=== PATIENT | male | born 1945 | race Caucasian/White ===

== ENCOUNTER 2025-07-04 13:31 | Outpatient (AMB) | payer MEDICARE, MEDICAID, SELFPAY ==
--- OUTSIDE RECORDS SUMMARY | 2024-10-26 11:00 | XMS_ITS | Encounter Summary ---
Author Name [facility] [place] Address [address] [place] [address] Care Team Providers Care Cloth Painter Name Role Phone SUSAN DENNIS Primary Care Provider Unavailabl e Insurance Providers: All historical and current Section Date Range: From patient's date of to the date document was created. This section includes the names of all active insurance providers for the patient. Insurance Provider Type of Coverage Plan Name Start of Policy Coverage End of Policy Coverage Group Number Member ID Insurance Provider's Telephone Number Policy Hardwick's Name Patient's Relationship to Policy Hardwick [facility] ([facility]) MEDICARE ADVANTAGE MCR ([facility]) Nov 17, 2022 [facility] [id number] Audrey HURST EORGE PATIENT [facility] ([facility]) MEDICARE ADVANTAGE [facility] ([facility]) Feb 16, 2020 [id number] Audrey HURST EORGE PATIENT Selected Encounter This section includes the information on record at [place] for the Encounter. Date/Time Encounter Type Encounter Description Reason Provider Source Oct 26, 2024 03:00 PM OFFICE O/P EST MOD 30 MIN PODIATRY ICD-10-CM L60.3 Nail dystrophy CARIN NAZARIO Encounter Template Text not used by VA Assessments - Encounter Diagnoses This section includes the primary and secondary diagnoses documented for the Encounter. Date/Time Primary/Secondary Diagnosis Diagnosis Name Provider Source Oct 26, 2024 03:26 PM PRIMARY Nail dystrophy CARIN NAZARIO Oct 26, 2024 03:26 PM SECONDARY Corns and callosities CARIN NAZARIO [facility] Oct 26, 2024 03:26 PM SECONDARY Pain in left toe(s) CARIN NAZARIO [facility] Oct 26, 2024 03:26 PM SECONDARY Pain in right toe(s) CARIN NAZARIO [facility] Oct 26, 2024 03:26 PM SECONDARY Type 2 diabetes w diabetic peripheral angiopath w/o gangrene CARIN NAZARIO [facility] Plan of Treatment: Future Appointments (+ 6 months) and Future Tests (+/- 45 days) The Plan of Treatment section includes future care activities for the patient from [facility] This section includes future appointments and future orders which are active, pending or scheduled. Future Appointments This section includes appointments that were scheduled to occur 6 months from the date of the Encounter, up to a maximum of 20 appointments. The data comes from all [place] treatment facilities. Appointment Date/Time Appointment Type Appointme nt Facility Name Dec 09, 2024 09:00 [facility] March 18, 2025 03:00 PM AM[facility]ULATORY [facility] MEDICINE [facility] Social History: Smoking Status (Most current) and Tobacco Use (All prior to encounter date) This section includes the most current, and the historical, smoking and tobacco- related health factors from the [place] facility where the Encounter took place. Current Smoking Status This section includes the most current smoking, or tobacco-related health factor, from the [place] facility where the Encounter took place. Date/Time Current Smoking Status Comment Fiona ityo Sep 01, 2024 01:30 PM VA-TOBACCO NEVER USED [facility] Tobacco Use History This section includes a history of the smoking, or tobacco-related health factors, that were collected on or before the date of the Encounter. The data comes from the [place] facility where the Encounter took place. Date/Time Smoking Status/Tobacco Use Comment F acility Aug 12, 2023 01:00 PM VA-TOBACCO NEVER USED [facility] Aug 12, 2022 01:00 PM VA-TOBACCO FORMER USER [facility] Aug 12, 2022 01:00 PM VA-TOBACCO QUIT 15 YRS OR MORE [facility] Aug 14, 2021 09:30 AM VA-TOBACCO FORMER USER [facility] Aug 14, 2021 09:30 AM VA-TOBACCO QUIT 15 YRS OR MORE [facility] Aug 06, 2018 02:38 PM VA-TOBACCO FORMER USER [facility] 20, 2018 02:38 PM VA-TOBACCO QUIT 15 YRS OR MORE [facility] Aug 06, 2018 01:55 PM QUIT TOBACCO USE > 7 YEARS AGO [facility] Jul 29, 2017 11:26 AM QUIT TOBACCO USE > 7 YEARS AGO [facility] Jul 29, 2016 01:23 PM QUIT TOBACCO USE > 7 YEARS AGO qyut smoking cig in 2004 [facility] Jan 31, 2015 02:13 PM QUIT TOBACCO USE > 7 YEARS AGO [facility] Sep 17, 2013 03:01 PM QUIT TOBACCO USE 1 -7 YEARS AGO [facility] Jan 22, 2012 09:59 AM QUIT TOBACCO USE 1 -7 YEARS AGO [facility] Sep 19, 2011 01:16 PM QUIT TOBACCO USE 1 -7 YEARS AGO 2004 [facility] Advance Directives: All historical and current Section Date Range: From patient's date of to the date document was created. This section includes ALL of a patient's completed or amended [place] Advance and Rescinded Directives. The entries below indicate that a directive exists for the patient, but an actual copy is not included with this document. The data comes from all [place] facilities. Date Advance Directives Provider Source Jan 13, 2018 [facility] Encounter Notes: All associated encounter notes This section contains the clinical notes associated to the Encounter. Date/Time Encounter Note(s) Provider Source Nov 16, 2024 09:17 AM LETTERS: LOCAL TITLE: PATIENT LETTER (B) STANDARD TITLE: LETTERS DATE OF NOTE: NOV 16, 2024@09:17 ENTRY DATE: NOV 16, 2024@09:17:58 AUTHOR: ASTON RUCKER COSIGNER: URGENCY: STATUS: COMPLETED [facility] [address] [place] [id number] [phone] * [phone] * [facility] [address] [place] [id number] Date: NOV 16, 2024 Dear Center: This is a reminder letter that your [facility] [place] located at [address] [place] [address]. You may sweet pickle maker your shoes and or orthotics at your convenience any day, Friday through Friday between 8:30am and 3:30pm. You do not need an appointment. BUT WE DO REQUEST THAT YOU CALL BEFORE ARRIVING TO MAKE SURE THE PODIATRY HEALTH ENERGY EFFICIENCY FINANCE MANAGER IS AVAILABLE ON THAT DAY. Call [phone] for Aston if you have any questions. We hope to see you soon, Sincerely, Office Staff for:SUSAN DENNIS Care Provider Upcoming Appointments: 03/01/2025 15:00 CWM/SO/PODIATRY/ARAVIND 09/01/2025 13:00 CWM/SO/PACT 10 ASTON RUCKER [facility] Oct 26, 2024 03:27 PM PODIATRY NOTE: LOCAL TITLE: PODIATRY PAVE FOOT EXAM STANDARD TITLE: PODIATRY NOTE DATE OF NOTE: OCT 26, 2024@15:27 ENTRY DATE: OCT 26, 2024@15:27:54 AUTHOR: CARIN NAZARIO COSIGNER: URGENCY: STATUS: COMPLETED PAVE FOOT EXAM A foot risk level was completed. The following risk level was identified for this patient: +POD RISK SCORE+ *--LEVEL 3 - (HIGH RISK)* ANY of the following: Severe obstructive peripheral arterial disease Ulceration; OR history of ulceration, osteomyelitis, or amputation Charcot joint w/foot deformity Chronic kidney disease, stage 4 or higher (Decreased sensation, foot deformity, and minor foot infection may be present or absent) LEVEL 3 FOOT EDUCATION: 1. Advised patient that extra depth footwear with soft molded inserts and braces may be required. 2. Advised patient not to walk barefoot. Instructed the patient to pay close attention to the style and fit of shoes. 3. Explained the importance of daily foot checks. Explained that loss of sensation leads to callouses. Callouses break down, which result in ulcers that may lead to gangrene and amputation. 4. Stressed the importance of daily foot hygiene. Warm (not hot) bathing of the feet, complete drying and thorough inspection for changes in the condition of the skin constitute daily foot care. Demonstrated how to do a thorough foot check. 5. Emphasized the use of clean, non-restrictive socks/stockings and well fitting shoes. 6. Stressed the importance of immediate follow-up of any foot injuries or ulcers. Explained that he/she should be non-weight bearing whenever there are lesions on the foot, to prevent cellular damage. Level of Understanding: Good Patient/Family Response to Foot Care Teaching Patient walks barefoot: A few times per month Patient/caregiver able to clean feet at least once daily: Yes Patient/caregiver has difficulty examining feet: No /nabor/ CARIN NAZARIO DPM TOBACCO CLOTH RECLAIMER Signed: 10/26/2024 15:28 CARIN NAZARIO [facility] Oct 26, 2024 08:52 AM PODIATRY NOTE: LOCAL TITLE: PODIATRY NOTE STANDARD TITLE: PODIATRY NOTE DATE OF NOTE: OCT 26, 2024@08:52 ENTRY DATE: OCT 26, 2024@08:52:24 AUTHOR: CARIN NAZARIO EXP COSIGNER: URGENCY: STATUS: COMPLETED NOTE: HAS RECEIVED BOTH COVID VACCINE DOSES AT [facility] *LAST SEEN FOR TREATMENT: 06/22/2024 S: Pt. is a 79 yo alert [facility] who is seen for continued podiatric care of painful, thickened, severely incurvated, yellow-brown discolored nails. There has been pain for several days which is intermittent with periods of exacerbation & remission, is of an aching throbbing nature and is exacerbated with shoes & increased activity. Pain is at LEVEL 2-3/10 prior to treatment & 0/10 after. There is no history of trauma. There have been no recent changes in the patient's medical condition or medications upon questioning today. Pt. is at risk of injury with self-care due to the presence of TYPE II DM. *DENIES ANY RECENT CHANGES IN MEDS-SEE RECONCILIATION PERFORMED THIS DATE BELOW DENIES TOBACCO O: Exam reveals skin color to be pigmented, temp, is WNL, text has areas of dryness plantar aspect of feet and heels bilat. There is absence of hair noted. Nails are thickened, yellow-brown discolored and display crumbling, flakiness and sub-ungual debris with rubor in the medial & lateral nail grooves and pain on palpation. Affected nails are as follows: 1-2-3-4-5 bilateral. There are hyperkeratosis noted at this time MEDIAL HALLUX BILAT & PERIPHERY OF HEELS BILATERAL. There are no other gross LE changes in status noted this date. PMH: Active problems - Computerized Problem List is the source for the following: *NOTE: REVIEWED ABOVE NOTING NO CHANGES SINCE PREVIOUS VISIT SEE PROBLEM LIST TEMPLATE FOR COMPLETE LIST NEEDED. (TYPE II DM/OBESITY) *NOTE: A1c = 6.1 (LAST TAKEN: 08/06/2021) XIK=463CD RISK VALUE=2 HEIGHT: 70 in [177.8 cm] (07/29/2016 13:22) WEIGHT: 245.5 lb [111.6 kg] (07/29/2016 13:22) VASCULAR: EXAM REVEALS DP & PT pulses TO BE absent non-palpable bilateral. CFT < 3 sec x 10. There is +2 edema and there are no varices-superficial noted. MUSCULOSKELETAL: Exam reveals muscle strength and tone to be equal & symmetrical bilaterally & WNL for an individual of this age and present physical-medical condition. There is pain free ROM at all joints distal to and including the ankle. NEUROLOGICAL: Exam reveals S/D, vibratory, light touch & proprioception sensations to be equal & symmetrical bilaterally & diminished for an individual of this age and present physical-medical status. Protective sensation utilizing a Ingleside-Raheel lOg monofilament is 10/10 bilateral. Exams are reviewed and noted to be unchanged since previous visit & determined to be non-contributory to the cc . *NOTE: *YEARLY COMPLETE PAVE EXAM PERFORMED TODAY - SEE BELOW. A: Clinical Impression: Painful onychocryptic, clinically mycotic dystrophic nails as noted above & hyperkeratois in the presence of PVD-DM. Class findings have been met in a high risk individual and the systemic condition has resulted in circulatory impairment & areas of desensitization. P: Treatment consists of debridement reduction of all nails via manual and electric means with excision of offending nail borders and thinning of nail plates to the point of immanent bleeding & surgical paring debridement of all hyperkeratosis utilizing a sterile #10 scalpel. Applied ammonium lactate 12% lotiont to dry skin. All care rendered without complications & pt. progressing well after podiatric care this date & will be scheduled for periodic care in an attempt to prevent future complications due to the underlying medical conditions. Tx. By a non-professional could be extremely hazardous to the patient's well-being due to the underlying medical condition. RTC 03/01 @ 3PM). REVIEWED HOME FOOT CARE FEET ARE IN EXCELLENT CONDITION AND I PROVIDED HIM WITH WRITTEN RECOMMENDATIONS FOR FOOT CARE TO BE REVIEWED AT HOME CONTINUE TO MAINTAIN THEM (FOOT CARE TIPS) DISCUSSED NEW PROTOCOLS AND CALLED JOSH FOR RESCHEDULING TODAY I DISCUSSED THE FINDINGS & PLAN WITH PATIENT (UNCHANGED SINCE PREVIOUS VISIT) & PATIENT AGREES AND UNDERSTANDS PLAN & RECEIVED MIRROR DISCUSSED HIS SON IN THE HOSPITAL WITH A POSSIBLE BONE INFECTION AND ON IV ANTIBIOTICS. Medication Reconciliation: PERFORMED TODAY - SEE BELOW. Outpatient: Has the patient been taking medications as documented in the EMLR? YES: The patient has been taking medications as documented in the EMLR. Essential Medication List for Review used to complete this medication reconciliation. INCLUDED IN THIS LIST: Alphabetical list of active outpatient prescriptions dispensed from this [facility] (local) and dispensed from another [place] or DoD facility (remote) as well as inpatient orders (local, pending and active), local clinic medications, locally documented non-VA medications, and local prescriptions that have or been discontinued in the past 90 days. - All changes in medications, including all non-VA/Herbal/OTC medications were entered into CPRS. - If there were any medications the patient should no longer take, they were discontinued. - The patient/caregiver was instructed to update this list, discard old lists, and take this list to the next appointment, whether with a VA or non-VA provider. JLV Link Data on this list may not be complete. Please check JLV. Allergies/ADRs (Tool #5) FACILITY ALLERGY/ADR -------- No Remote Allergy/ADR Data available for this patient [facility] No Known Allergies Med [facility] (Tool #1) INCLUDED IN THIS LIST: Alphabetical list of active outpatient prescriptions dispensed from this [facility] (local) and dispensed from another VA or DoD facility (remote) as well as inpatient orders (local pending and active), local clinic medications, locally documented non-VA medications, and local prescriptions that have or been discontinued in the past 90 days. Non-VA Meds Last Documented On: Sep 01, 2024 NOTE The display of VA prescriptions dispensed from another VA or DoD facility (remote) is limited to active outpatient prescription entries matched to National Drug File at the originating site and may not include some items such as investigational drugs, compounds, etc. NOT INCLUDED IN THIS LIST: Medications self-entered by the patient into personal health records (i.e. [employer]) are NOT included in this list. Non-VA medications documented outside this [place], remote inpatient orders (regardless of status) and remote clinic medications are NOT included in this list. The patient and provider must always discuss medications the patient is taking, regardless of where the medication was dispensed or obtained. Non-VA ASPIRIN 81MG EC TAB TAKE ONE TABLET BY MOUTH DAILY Non-VA ATORVASTATIN CALCIUM 80MG TAB TAKE ONE TABLET BY MOUTH AT BEDTIME Non-VA medication not recommended by VA provider. Medication prescribed by Non-VA provider. Non-VA EZETIMIBE 10MG TAB TAKE ONE TABLET BY MOUTH ONCE DAILY Patient wants to buy from Non-VA pharmacy. Medication prescribed by Non-VA provider. Non-VA FINASTERIDE 5MG TAB TAKE ONE TABLET BY MOUTH ONCE DAILY Non-VA medication not recommended by VA provider. Medication prescribed by Non-VA provider. Indication: FOR ENLARGED PROSTATE Non-VA FISH OIL 500MG DHA/EPA CAP,ORAL TAKE BY MOUTH DAILY Non-VA LISINOPRIL 5MG TAB TAKE ONE TABLET BY MOUTH ONCE DAILY Non-VA METFORMIN HCL 500MG TAB TAKE ONE TABLET BY MOUTH TWICE DAILY Non-VA METOPROLOL TARTRATE TAB TAKE BY MOUTH TWICE DAILY Non-VA MULTIVITAMIN/MINERALS CAP/TAB TAKE ONE TABLET BY MOUTH DAILY OUTPT OMEPRAZOLE 20MG EC CAP (Status = ) TAKE ONE CAPSULE BY MOUTH TWICE DAILY Rx# [id number] Last Released: 06/18/24 Qty/Days Supply: Rx Expiration Date: 09/08/24 Refills Remainin Non-VA OTHER CAP/TAB TAKE TIMOLOL EYE DROPS ONE DROP each eye DAILY Non-VA POLYETHYLENE GLYCOL 3350 POWDER,ORAL TAKE BY MOUTH DAILY Non-VA TICAGRELOR 60MG TAB TAKE ONE TABLET BY MOUTH TWICE DAILY SUPPLIES OUTPT ACCU-CHEK GUIDE (GLUCOSE) TEST STRIP (Status = Active) USE 1 STRIP TO TEST BLOOD SUGARS EVERY OTHER DAY TO BE USED WITH ACCU-CHEK GUIDE ME METER Rx# [id number] Last Released: 02/17/24 Qty/Days Supply: 50 Rx Expiration Date: 12/04/24 Refills Remainin OUTPT LANCET,SOFTCLIX (Status = Active) USE 1 LANCET DIRECTED ONCE DAILY TO TEST BLOOD SUGAR Rx# [id number] Last Released: 02/17/24 Qty/Days Supply: 100 Rx Expiration Date: 12/04/24 Refills Remainin OUTPT TABLET CUTTER (PILL SPLITTER) (Status = Active) USE CUTTER DIRECTED ONCE DAILY TO SPLIT TABLETS Rx# [id number] Last Released: 09/01/24 Qty/Days Supply: Rx Expiration Date: 11/30/24 Refills Remainin PAVE Foot Check: A complete foot check was completed at this encounter. VISUAL INSPECTION: Includes inspection for skin breaks, deformity, erythema, trauma, pallor on elevation, dependent rubor, nail deformities, extensive callus and pitting edema. Visual exam results: Abnormal Observations: Thickened toenails PEDAL PULSES: Includes palpation of dorsalis and posterior tibial pulses and signs/symptoms of vascular compromise like pain, pallor, parasthesia or paralysis. Absent: Comment: PT PULSES ARE ABSENT NON-PALPABLE BILAT SENSORY CHECK: Includes 10 gram Monofilament (Ingleside-Raheel) test of sensation. Intact (Greater than or equal to 80% of sites checked) Abnormal (Less than 80% of sites checked): Intact Comment: VIBRATORY & MONOFILAMENT ARE WNL BILAT HIGH-RISK: HIGH RISK INFORMATION PROVIDED: 1. Advised patient that extra depth footwear with soft molded inserts and braces may be required. 2. Advised patient not to walk barefoot. 3. Explained the importance of daily foot checks. 4. Stressed the importance of daily foot hygiene, including bathing, complete drying and thorough inspection for changes. The patient verbalized understanding and was offered a detailed handout on diabetic foot care. Patient is established patient of Podiatry and/or Vascular: Last scheduled appointment: JUN 22, 2024@15:00 AIDEN/LOGAN/PODIATRY/ARAVIND Comment: 06/22/2024 /nabor/ CARIN NAZARIO DPM TOBACCO CLOTH RECLAIMER Signed: 10/26/2024 15:27 CARIN NAZARIO
--- OUTSIDE RECORDS SUMMARY | 2025-07-04 14:24 | XMS_ITS | Clinical Summary ---
Author Organization [facility] 299 [facility] Address [address] [place] [address] Phone Care Team Providers Care Radiator Tester Name Role Phone Amilcar Huertas MD Primary Care Provider Allergies No known active allergies Medications aspirin 81 mg EC tablet Take 1 tablet (81 mg total) by mouth 1 (one) time each day. Active atorvastatin (LIPITOR) 80 mg tablet Take 1 tablet (80 mg total) by mouth at bedtime. Active metFORMIN (GLUCOPHAGE) 500 mg tablet Take 1 tablet (500 mg total) by mouth. Active finasteride (PROSCAR) 5 mg tablet Take 1 tablet (5 mg total) by mouth 1 (one) time each day. Do not crush, chew, or split. Active lisinopriL (PRINIVIL,ZESTR IL) 5 mg tablet Take 1 tablet (5 mg total) by mouth 1 (one) time each day. Active metoprolol succinate (TOPROL-XL) 25 mg 24 hr tablet Take 1 tablet (25 mg total) by mouth 1 (one) time each day. Do not crush or chew. Active tirzepatide (Mounjaro) 2.5 mg/0.5 mL injection Inject 0.5 mL (2.5 mg total) under the skin. Active sodium chloride (DAR 128) 5 % ophthalmic solution 1 drop if needed. Active omeprazole (PRILOSEC) 20 mg tablet,delayed release (DR/EC) Take by mouth. Active acetaminophen (TYLENOL 8 HOUR) 650 mg 8 hr tablet Take 1 tablet (650 mg total) by mouth every 8 (eight) hours if needed for mild pain. Do not crush, chew, or split. Active ezetimibe (ZETIA) 10 mg tablet Take 1 tablet (10 mg total) by mouth 1 (one) time each day. Active timoloL (BETIMOL) 0.5 % ophthalmic solution 1 drop 2 (two) times a day. Active tamsulosin (FLOMAX) 0.4 mg 24 hr capsule Take 1 capsule (0.4 mg total) by mouth 1 (one) time each day with breakfast. Capsules should be taken 30 minutes following the same meal each day. Active glucose blood test strip 1 each by Other route if needed. Use as instructed Active prednisoLONE acetate (PRED FORTE) 1 % ophthalmic suspension 1 drop 4 (four) times a day. Active ticagrelor (BRILINTA) 90 mg tablet Take 1 tablet (90 mg total) by mouth 2 (two) times a day. Active glucose blood test strip 1 each by Other route if needed. Use as instructed Active lancets ([employer] Delica Plus Lancet) 33 gauge USE 1 TO CHECK GLUCOSE ONCE DAILY Active Active Problems Problem Noted Date Diagnosed Date Abnormal ankle brachial index (RACHELLE) Naidu's esophagus Assessment & Plan (03/23/2025 4:21 PM EDT): Due for surveillance EGD. Book EGD Continue omeprazole 20 mg daily Upper Endoscopy: Discussed with patient indications for procedure as well as risks of bleeding, infection, risk of perforation and reaction to anesthesia. Patient is aware of risk of missed lesions. Patient understands and would like to proceed. Alternatives to endoscopic evaluation discussed. Benefit of procedure for screening, diagnostic and therapeutic purposes discussed. The patient acknowledges risks, benefits and alternatives and all questions are answered. Patient is to follow up after the procedure for biopsy results Diabetic Patients: Hold Mounjaro 7 days prior Skip metformin day of procedure General: Patient aware needs a ride home Not to have liquids for at least two hours before procedure. Benign hematuria Bladder diverticulum Coronary artery calcification Glucose intolerance GERD (gastroesophageal reflux disease) Fatty liver Lower urinary tract symptoms (LUTS) HTN (hypertension) HLD (hyperlipidemia) History of corneal transplant Diabetes (CMS/HCC V24, CMS/HCC V28) Severe obesity (BMI 35.0-39. 9) with comorbidity (CMS/HCC V24, [facility] V28) Macrocytosis without anemia Encounters Date Type Department Care Team Description 05/27/2025 11:40 AM EDT Anesthesia Event [facility] Endoscopy [address] [place] [address] Mir Larsen MD Claudio, Raymund, CRNA 05/27/2025 11:11 AM EDT - 05/27/2025 11:59 PM EDT Hospital Encounter [facility] Endoscopy [address] [place] [address] Sabino Pickering MD Claudio, Raymund, CRNA Dasilva, John E, MD Naidu's esophagus Discharge Disposition: Home or Self Care 04/29/2025 Telephone Gastroenterology - [place] [facility] [address] [facility] [address] [place] [address] Jacqueline Lopez LPN Anticoagulation (Upper endoscopy on 05/27/[address] Pickering) from Last 3 Months Surgical History Surgery Date Site/Laterality Comments ESOPHAGOGASTRODUODENOSCOPY 04/23/2021 Naidu's esophagus negative for dysplasia recall 3 years COLONOSCOPY 04/23/2021 follow-up as needed STENT PLACEMENT 01/16/2024 - 02/15/2024 CIRCUMCISION, PRIMARY COLONOSCOPY 11/17/2006 - 11/16/2007 ESOPHAGOGASTRODUODENOSCOPY 05/11/2018 HERNIA REPAIR Medical History Medical History Date Comments Naidu's esophagus Severe obesity (BMI 35.0-39. 9) with comorbidity ([facility] V24, [facility] V28) HTN (hypertension) Diabetes ([facility] V24, [facility] V28) HLD (hyperlipidemia) Lower urinary tract symptoms (LUTS) Glucose intolerance Bladder diverticulum Fatty liver Coronary artery calcification History of corneal transplant GERD (gastroesophageal reflux disease) Benign hematuria Abnormal ankle brachial index (RACHELLE) Macrocytosis without anemia Family History Medical History Relation Name Comments Hypertension Brother Pulmonary embolism Brother diabetes mellitus Other son Colon cancer Neg Hx Colon polyps Neg Hx Relation Name Status Comments Brother Other Social History Tobacco Use Types Packs/Day Years Used Date Smoking Tobacco: Former Cigarettes Smokeless Tobacco: Former Tobacco Cessation:Counseling Given: Not Answered Alcohol Use Standard Drinks/Week Comments Not Currently 0 (1 standard drink = 0.6 oz pur e alcohol) Interpersonal Safety Answer Date Record ed Physical Abuse 05/27/2025 Verbal Abuse 05/27/2025 Sex and Gender Information Value Date Recorded Sex Assigned at Not on file Legal Sex Male 5:23 AM EST Gender Identity Not on file Sexual Orientation Not on file Obstetrics History Last Filed Vital Signs Vital Sign Reading Time Taken Comments Blood Pressure 123/68 05/27/2025 12:19 PM EDT Pulse 86 05/27/2025 12:19 PM EDT Temperature 36.1 C (97 F) 05/27/2025 11:59 AM EDT Respiratory Rate 18 05/27/2025 12:19 PM EDT Oxygen Saturation 100% 05/27/2025 12:19 PM EDT Inhaled Oxygen Concentration - - Weight 113 kg (250 lb) 05/27/2025 11:33 AM EDT Height 177.8 cm (5' 10 ) 05/27/2025 11:33 AM EDT Body Mass Index 35.87 05/27/2025 11:33 AM EDT Plan of Treatment Health Maintenance Due Date Last Done Comments Diabetes: Annual GFR (Glomerular Filtration Rate) 1945 Diabetes: Annual Foot Exam 1955 Diabetes: Annual Retina Eye Exam 1955 Depression Screening 11/17/2024 COVID-19 Vaccine ( season) 2025 08/02/2024, 09/23/2022, 03/22/2022, Additional history exists Cholesterol Screening (Lipid Panel) 03/12/2025 Hepatitis C Screening 03/12/2025 Medicare Annual Wellness Visit 03/12/2025 Social Influencers of Health Screening 03/12/2025 Diabetes: Annual Urine Albumin-Creatinine Ratio (uACR) 03/21/2025 Diabetes: Blood Sugar Control Test (HGBA1C) 03/21/2025 Hypertension/CHF/CAD Annual BMP Blood Test 03/21/2025 Influenza Vaccine (#1) 2025 , 09/25/2023, 08/30/2022, Additional history exists Falls Risk Assessment 05/27/2026 05/27/2025 DTaP,Tdap,and Td Vaccines (5 - Td or Tdap) 04/14/2035 04/14/2025, 09/11/2018, 09/19/2011, Additional history exists Zoster Vaccines Completed 11/25/2022, 1105/2022, 01/31/2015 RSV Immunization Adult Patients Completed 12/18/2023 Pneumococcal Vaccine: 50+ Years Completed 01/08/2024, 07/29/2017, 06/16/2015, Additional history exists Hepatitis A Vaccines Aged Out 06/17/2024, 01/16/2024, 12/18/2023 No longer eligible based on patient's age to complete this topic Hepatitis B Vaccines Completed 06/17/2024, 01/16/2024, 12/18/2023 HIB Vaccines Aged Out No longer eligi ble based on patient's age to complete this topic HPV Vaccines Aged Out No longer eligi ble based on patient's age to complete this topic IPV Vaccines Aged Out No longer eligi ble based on patient's age to complete this topic MMR Vaccines Aged Out No longer eligi ble based on patient's age to complete this topic Meningococcal ACWY Vaccine Aged Out N o longer eligible based on patient's age to complete this topic Meningococcal B Vaccine Aged Out No l onger eligible based on patient's age to complete this topic RSV Immunization Patients Under 20 months Aged Out No longer eligible based on patient's age to complete this topic Varicella Vaccines Aged Out No longer eligible based on patient's age to complete this topic Procedures Procedure Name Priority Date/Time Associated Diagnosis Comments EGD Routine 05/27/2025 11:58 AM EDT Naidu's esophagus TISSUE EXAM Routine 05/27/2025 11:53 AM EDT Naidu's esophagus from Last 3 Months Results * EGD Anesthesia - MAC; [facility] ENDOSCOPY (05/27/2025 11:58 AM EDT) Anatomical Region Laterality Modality Endoscopy 05/27/2025 11:4 5 AM EDT Impressions 05/27/2025 12:01 PM EDT - Esophageal mucosal changes secondary to established long-segment Naidu's disease. Biopsied. - Normal stomach. - Normal examined duodenum. Recommendation: - Await pathology results. - Repeat upper endoscopy in 2 years for surveillance. Narrative 05/27/2025 12:[address] [facility] GI Patient Name: Dutch Hurst Procedure Date: 05/27/2025 11:45 AM Date of : 1945 Age: 79 Room: ROOM 15 Gender: Male Note Status: Finalized Attending MD: Sabino Pickering MD, Procedure Date No Time: 05/27/2025 Procedure: Upper GI endoscopy Indications: Surveillance for malignancy due to personal history of Naidu's esophagus Providers: Sabino Pickering MD Referring MD: Sabino Pickering MD Medicines: Propofol per Anesthesia Complications: No immediate complications. Estimated Blood Loss: Estimated blood loss: none. Estimated blood loss was minimal. Procedure: Pre-Anesthesia Assessment: - ASA Grade Assessment: II - A patient with mild systemic disease. After obtaining informed consent, the endoscope was passed under direct vision. Throughout the procedure, the patient's blood pressure, pulse, and oxygen saturations were monitored continuously.The Olympus Gastroscope was introduced through the mouth, and advanced to the second part of duodenum. The upper GI endoscopy was accomplished without difficulty. The patient tolerated the procedure well. Findings: There were esophageal mucosal changes secondary to established long-segment Naidu's disease present in the middle third of the esophagus and in the lower third of the esophagus. The maximum longitudinal extent of these mucosal changes was 5 cm in length. Mucosa was biopsied with a cold forceps for histology in 4 quadrants at intervals of 3 cm. The following biopsy specimens were sent to pathology: 4 quadrant biopsy at 33 cm from the incisors (1st Bottle) and 4 quadrant biopsy at 30 cm from the incisors (2nd Bottle). A total of 2 specimen bottles were sent to pathology. The stomach was normal. The examined duodenum was normal. Procedure Code(s): --- Professional --- 74644, Esophagogastroduodenoscopy, flexible, transoral; with biopsy, single or multiple Diagnosis Code(s): --- Professional --- K22.70, Naidu's esophagus without dysplasia CPT copyright 2020 [employer]. All rights reserved. The codes documented in this report are preliminary and upon car mechanic review may be revised to meet current compliance requirements. Sabino Pickering MD 05/27/2025 12:00:51 PM This report has been signed electronically.Sabino Pickering MD Number of Addenda: 0 Note Initiated On: 05/27/2025 11:45 AM Scope In: Scope Out: Endoscopy Department at [facility] - [address] [place] [phone] Procedure Note Sabino Pickering MD - 05/27/2025 [facility] GI Patient Name: Dutch Hurst Procedure Date: 05/27/2025 11:45 AM Date of : 1945 Age: 79 Room: ROOM 15 Gender: Male Note Status: Finalized Attending MD: Sabino Pickering MD, Procedure Date No Time: 05/27/2025 Procedure: Upper GI endoscopy Indications: Surveillance for malignancy due to personal historyof Niadu's esophagus Providers: Sabino Pickering MD Referring MD: Sabino Pickering MD Medicines: Propofol per Anesthesia Complications: No immediate complications. Estimated Blood Loss: Estimated blood loss: none. Estimated blood loss was minimal. Procedure: Pre-Anesthesia Assessment: - ASA Grade Assessment: II - A patient with mild systemic disease. After obtaining informed consent, the endoscope was passed under direct vision. Throughout theprocedure, the patient's blood pressure, pulse, and oxygen saturations were monitored continuously.The Olympus Gastroscope was introduced through the mouth, and advanced to the second part of duodenum. The upperGI endoscopy was accomplished without difficulty. The patient tolerated the procedure well. Findings: There were esophageal mucosal changes secondary to established long-segment Naidu's disease presentin the middle third of the esophagus and in the lower third of the esophagus. The maximum longitudinal extent of these mucosal changes was 5 cm in length. Mucosa was biopsied with a cold forceps forhistology in 4 quadrants at intervals of 3 cm. The following biopsy specimens were sent to pathology: 4 quadrant biopsy at 33 cm from the incisors (1st Bottle) and4 quadrant biopsy at 30 cm from the incisors (2nd Bottle). A total of 2 specimen bottles were sent to pathology. The stomach was normal. The examined duodenum was normal. Procedure Code(s): --- Professional --- 72290, Esophagogastroduodenoscopy, flexible, transoral; with biopsy, single or multiple Diagnosis Code(s): --- Professional --- K22.70, Naidu's esophagus without dysplasia CPT copyright 2020 [employer]. All rights reserved. The codes documented in this report are preliminary and upon car mechanic reviewmay be revised to meet current compliance requirements. Sabino Pickering MD 05/27/2025 12:00:51 PM This report has been signed electronically.Sabino Pickering MD Number of Addenda: 0 Note Initiated On: 05/27/2025 11:45 AM Scope In: Scope Out: Endoscopy Department at [address] [phone] IMPRESSION: - Esophageal mucosal changes secondary to established long-segment Naidu's disease. Biopsied. - Normal stomach. - Normal examined duodenum. Recommendation: - Await pathology results. - Repeat upper endoscopy in 2 years forsurveillance. Sabino Pickering MD GI~PROCEDURE ORDERABLES Fin al Result * Tissue exam (05/27/2025 11:53 AM EDT) Final Diagnosis A. Esophagus, biopsies at 33 cm: Gastric mucosa with intestinal metaplasia, compatible with Naidu's esophagus. Negative for dysplasia. Esophageal squamous mucosa is not appreciated. B. Esophagus, biopsies at 30 cm: Gastric mucosa with intestinal metaplasia, compatible with Naidu's esophagus. Negative for dysplasia. Esophageal squamous mucosa is not appreciated. 05/30/2025 10:40 AM EDT [facility] Gross Description A. Esophagus, biopsies at 33cm on scope: Labeled ID: 2, esophagus, esophagus . Received in formalin are four irregular pink-white mucosal tissue fragments, each measuring approximately 0.2 cm in greatest dimension, which are wrapped in paper and submitted in toto in one cassette, four pieces, multiple levels on one slide. B. Esophagus, biopsies at 30 cm on scope: Labeled ID: 2, esophagus, esophagus . Received in formalin are five irregular pink-white mucosal tissue fragments, ranging from less than 0.1 cm to 0.2 cm in greatest dimension, which are wrapped in paper and submitted in toto in one cassette, five pieces, multiple levels on one slide. EAGLE 05/30/2025 10:40 AM EDT [facility] Disclaimer Unless otherwise specified, all tissue is 10% NB formalin fixed and paraffin embedded. 05/30/2025 10:40 AM EDT [facility] Tissue Esophageal structure / Unknown 05/27/2025 11:53 AM EDT 05/27/2025 12:54 PM EDT Tissue specimen (specimen) Esophageal structure / Unknown 05/27/2025 11:54 AM EDT 05/27/2025 12:54 PM EDT us Sabino Pickering MD LAB PATHOLOGY ORDERABLES Fi nal Result [facility] ([facility]) [facility] [address] [place] [address], [place] [phone] from Last 3 Months Insurance [employer] [place] - [place] Care Teams Radiator Tester Relationship Specialty Start Date End Date Amilcar Huertas MD [address] [place] [address] PCP - General Internal Medicine 03/11/25
== END 2025-07-04 13:36 | disposition home or self-care (01) ==
LOC: HO.HMGAL 13:32
PROVIDERS: Visit Provider Registered Nurse Emergency
DX: J30.89 Other allergic rhinitis (principal)
CPT/HCPCS: 95117; 95165

== ENCOUNTER 2025-08-10 14:20 | Outpatient (AMB) | payer MEDICARE, MEDICAID, SELFPAY ==
--- OUTSIDE RECORDS SUMMARY | 2025-08-10 17:04 | XMS_ITS | Clinical Summary ---
Author Organization [facility] 299 [facility] Address [address] [place] [address] Phone Care Team Providers Care Credit Risk Manager Name Role Phone Amilcar Huertas MD Primary Care Provider [phone] Allergies No known active allergies Medications aspirin [...] if needed. Use as instructed Active lancets ([employer] Delica Plus Lancet) 33 gauge USE 1 [...] (BMI 35.0-39. 9) with comorbidity (CMS/HCC V24, [facility] V28) Macrocytosis without anemia Encounters Date Type Department Care Team Description 05/27/2025 11:40 AM EDT Anesthesia Event [facility] Endoscopy [address] [place] [phone] Mir Larsen MD Claudio, Raymund, CRNA 05/27/2025 11:11 AM EDT - 05/27/2025 11:59 PM EDT Hospital Encounter [facility] Endoscopy [address] [place] [phone] Sabino Pickering MD Claudio, Raymund, CRNA Dasilva, John E, MD Naidu's esophagus Discharge Disposition: Home or Self Care from Last 3 Months Surgical History Surgery Date Site/Laterality Comments ESOPHAGOGASTRODUODENOSCOPY 04/23/2021 Naidu's esophagus negative for dysplasia recall 3 years COLONOSCOPY 04/23/2021 follow-up as needed STENT PLACEMENT 01/16/2024 - 02/15/2024 CIRCUMCISION, PRIMARY COLONOSCOPY 11/17/2006 - 11/16/2007 ESOPHAGOGASTRODUODENOSCOPY 05/11/2018 HERNIA REPAIR Medical History Medical History Date Comments Naidu's esophagus Severe obesity (BMI 35.0-39. 9) with comorbidity ([facility] [place], [facility] V28) HTN (hypertension) Diabetes ([facility] V24, [facility] V28) HLD (hyperlipidemia) Lower urinary tract symptoms [...] Retina Eye Exam 1955 Depression Screening 11/17/2024 Cholesterol Screening (Lipid Panel) 03/12/2025 Hepatitis C Screening 03/12/2025 Medicare Annual Wellness Visit 03/12/2025 Social Influencers of Health Screening 03/12/2025 Diabetes: Annual Urine Albumin-Creatinine Ratio (uACR) 03/21/2025 Diabetes: Blood Sugar Control Test (HGBA1C) 03/21/2025 Hypertension/CHF/CAD Annual BMP Blood Test 03/21/2025 COVID-19 Vaccine ( season) 2025 08/02/2024, 09/23/2022, 03/22/2022, Additional history exists Influenza Vaccine (#1) 2025 , 09/25/2023, 08/30/2022, [...] 3 Months Results * EGD Anesthesia - [facility]; [facility] ENDOSCOPY (05/27/2025 11:58 AM EDT) Anatomical Region Laterality Modality Endoscopy 05/27/2025 11:4 5 AM EDT Impressions 05/27/2025 12:01 PM EDT - Esophageal mucosal changes secondary to established long-segment Naidu's disease. Biopsied. - Normal stomach. - Normal examined duodenum. Recommendation: - Await pathology results. - Repeat upper endoscopy in 2 years for surveillance. Narrative 05/27/2025 12:01 PM EDT [facility] GI Patient Name: Dutch Hurst Procedure Date: [...] was normal. Procedure Code(s): --- Professional --- 20628, Esophagogastroduodenoscopy, flexible, transoral; with biopsy, single or multiple Diagnosis Code(s): --- Professional --- K22.70, Naidu's esophagus without dysplasia CPT copyright 2020 [employer]. All rights reserved. The codes documented in this report are preliminary and upon trust clerk review may be revised to meet current compliance requirements. Sabino Pickering MD 05/27/2025 12:00:51 PM This report has been signed electronically.Sabino Pickering MD Number of Addenda: 0 Note Initiated On: 05/27/2025 11:45 AM Scope In: Scope Out: Endoscopy Department at [facility] - [address] [place] [phone] Procedure Note Sabino Pickering MD - 05/27/2025 [facility] GI Patient Name: Dutch Hurst Procedure Date: 05/27/2025 11:45 AM Date of : 1945 Age: 79 Room: ROOM 15 Gender: Male Note Status: Finalized Attending MD: Sabino Pickering MD, Procedure Date No Time: 05/27/2025 Procedure: Upper GI endoscopy Indications: Surveillance for malignancy due to personal historyof Naidu's esophagus Providers: Sabino Pickering MD Referring [...] was normal. Procedure Code(s): --- Professional --- 66775, Esophagogastroduodenoscopy, flexible, transoral; with biopsy, single or multiple Diagnosis Code(s): --- Professional --- K22.70, Naidu's esophagus without dysplasia CPT copyright 2020 [employer]. All rights reserved. The codes documented in this report are preliminary and upon trust clerk reviewmay be revised to meet current compliance requirements. Sabino Pickering MD 05/27/2025 12:00:51 PM This report has been signed electronically.Sabino Pickering MD Number of Addenda: 0 Note Initiated On: 05/27/2025 11:45 AM Scope In: Scope Out: Endoscopy Department at [address] [address] IMPRESSION: - Esophageal mucosal changes secondary to [...] is not appreciated. 05/30/2025 10:40 AM EDT [facility] Gross Description A. Esophagus, biopsies [...] one slide. EAGLE 05/30/2025 10:40 AM EDT [facility] Disclaimer Unless otherwise specified, all tissue is 10% NB formalin fixed and paraffin embedded. 05/30/2025 10:40 AM EDT [facility] Tissue Esophageal structure / Unknown 05/27/2025 11:53 AM EDT 05/27/2025 12:54 PM EDT Tissue specimen (specimen) Esophageal structure / Unknown 05/27/2025 11:54 AM EDT 05/27/2025 12:54 PM EDT us Sabino Pickering MD LAB PATHOLOGY ORDERABLES Fi nal Result [facility] ([facility]) [facility] [address] [place] [address], [place] [phone] from Last 3 Months Insurance [employer] [place] Care Teams Credit Risk Manager Relationship Specialty Start Date End Date Amilcar Huertas MD [address] [place] [address] PCP - General Internal Medicine 03/11/25
== END 2025-08-10 14:30 | disposition home or self-care (01) ==
LOC: HO.HMGAL 14:20
PROVIDERS: PCP Internal Medicine Rheumatology; Visit Provider Registered Nurse Emergency
DX: J30.89 Other allergic rhinitis (principal)
CPT/HCPCS: 95117; 95165

== ENCOUNTER 2025-10-17 12:58 | Outpatient (AMB) | payer MEDICARE, MEDICAID, SELFPAY ==
--- OUTSIDE RECORDS SUMMARY | 2025-10-17 16:37 | XMS_ITS | Clinical Summary ---
Author Organization [facility] [address] [facility] Address [address] [place] [address] Phone Care Team Providers Care Devops Architect Name Role Phone Amilcar Huertas MD Primary [...] if needed. Use as instructed Active lancets ([employer] Delica Plus Lancet) 33 gauge USE 1 [...] (BMI 35.0-39. 9) with comorbidity (CMS/HCC V24, [facility] V28) Macrocytosis without anemia Surgical History Surgery Date Site/Laterality Comments ESOPHAGOGASTRODUODENOSCOPY 04/23/2021 Naidu's esophagus negative for dysplasia recall 3 years COLONOSCOPY 04/23/2021 follow-up as needed STENT PLACEMENT 01/16/2024 - 02/15/2024 CIRCUMCISION, PRIMARY COLONOSCOPY 11/17/2006 - 11/16/2007 ESOPHAGOGASTRODUODENOSCOPY 05/11/2018 HERNIA REPAIR Medical History Medical History Date Comments Naidu's esophagus Severe obesity (BMI 35.0-39. 9) with comorbidity ([facility] V24, [facility] V28) HTN (hypertension) Diabetes ([facility] V24, [facility] V28) HLD (hyperlipidemia) Lower urinary tract [...] Safety Answer Date Record ed Physical Abuse Unrecognized value 05/27/2025 Verbal Abuse Unrecognized value 05/27/2025 Sex and Gender Information Value Date [...] Additional history exists Zoster Vaccines Completed 11/25/2022, 05/2022, 01/31/2015 RSV Immunization Adult Patients Completed 12/18/2023 [...] on patient's age to complete this topic Insurance [employer] [place] Care Teams Devops Architect Relationship Specialty Start Date End Date Amilcar Huertas MD [address] [place] [address] PCP - General Internal Medicine 03/11/25
== END 2025-10-17 12:59 | disposition home or self-care (01) ==
LOC: HO.HMGAL 12:58
PROVIDERS: PCP Internal Medicine Rheumatology; Visit Provider Registered Nurse Emergency
DX: J30.89 Other allergic rhinitis (principal)
CPT/HCPCS: 95117; 95165